=== PATIENT | male | born 1995 | race Caucasian/White ===

== ENCOUNTER → 2021-01-25 | Outpatient (CLI) | payer BC, OTHER, MEDICARE, MEDICAID ==
--- NOTE | 2021-01-27 16:31 | SLEEPCENT ---
DATE: 01/25/2021 PROCEDURE: Nocturnal polysomnography. ORDERED BY: Dr. Lico Ribera at [facility]. Nocturnal polysomnography was performed for evaluation of sleep physiology in this patient with pulmonary hypertension. 8 hours and 9 minutes of data were reviewed. There were 432 minutes of sleep identified. Sleep latency was mildly prolonged at 20 minutes. REM latency was normal at 93 minutes. Sleep architecture was quite good with 4 REM cycles, minimal fragmentation. Overall sleep efficiency was 89.8%. EKG showed a regular rhythm with an average heart rate of 60 beats per minute, rate ranged 45 to 80. EEG showed fairly normal waveforms for wake and sleep. There were 31 respiratory events identified of 10 seconds in duration or greater for an apnea-hypopnea index of 5.1. The events were curiously more frequent late in the study and in stage REM. They were obstructive and not associated with a specific body posture. Arousals from respiratory events when arousals from snoring were included occurred 1.4 times per hour. There was some scattered limb activity. Limb movement arousal index was only 1.8. Oxygen desaturations were seen into the upper 80s. IMPRESSION: Obstructive sleep apnea syndrome (G47.33). Apnea-hypopnea index 5.1. RECOMMENDATION: The patient should be considered for pressure therapy given the frequency of events and oxygen desaturations associated with these particularly late in the study. In the interim, alcohol and sedative avoidance should be practiced, and caution exercised during the operation of motor vehicles.
== END ==
LOC: M SLEEP HO 12-13 10:50
PROVIDERS: ATTEND Internal Medicine Critical Care Medicine
DX: G47.33 Obstructive sleep apnea (adult) (pediatric) (principal)